=== PATIENT | male | born 1985 | race African-American/Black ===

== ENCOUNTER 2022-01-03 14:59 | Emergency (ER) | payer SELFPAY ==
[~2022-01-03] VITALS: Ht 188 cm; Wt 90.0 kg
[2022-01-03 15:01] VITALS: BP 124/82
[2022-01-03] MEDS ORDERED: IBUPROFEN 600MG TABLET PO STA (15:17)
[2022-01-03] MEDS ORDERED: IBUPROFEN 600MG TABLET PO NR (15:17)
[2022-01-03] MEDS ORDERED: LORAZEPAM 1MG TABLET PO ONE (15:30)
[2022-01-03] MEDS ORDERED: SODIUM CHLORIDE 0.9% 1,000 ML IV ONE (15:30)
[2022-01-03] MEDS ORDERED: LORAZEPAM 1MG TABLET PO NR (15:30)
[2022-01-03 17:33] LABS: BASOPHILS % 0.3 % (0.0-2.0); EOSINOPHILS % 0.1 % (0.0-5.0); HEMATOCRIT. 43.6 % (42.0-52.0); HEMOGLOBIN. 14.6 g/dL (14.0-18.0); LYMPHOCYTES % 21.5 % (20.0-50.0); MEAN CORPUSCULAR HEMOGLOBIN 29.7 pg (28.0-32.0); MEAN CORPUSCULAR VOLUME 88.6 fL (80.0-94.0); MEAN PLATELET VOLUME 8.1 fl (7.4-10.4); MONOCYTES % 7.4 % (2.0-8.0); NEUTROPHILS % 70.7 % (40.0-76.0); PLATELET 310 x1000/uL (130-400); RED BLOOD CELL COUNT 4.93 mill/uL (4.7-6.1)
[2022-01-03 17:57] LABS: CHLORIDE 100 mEq/L (98-107)
== END 2022-01-03 19:23 | disposition home or self-care (01) ==
LOC: ER 14:59
DX: F41.1 Generalized anxiety disorder (principal); F41.9 Anxiety disorder, unspecified; F90.9 Attention-deficit hyperactivity disorder, unspecified type
CPT/HCPCS: 36415; 71045; 73110; 80053; 84484; 85025; 96360; 99284; J7030